=== PATIENT | female | born 1970 | race Hispanic/Latino ===

== ENCOUNTER → 2019-03-03 | Outpatient (CLI) | payer OTHER ==
[~2019-03-03] MED LIST: ACET-2743 PO; DIAZEPAM 2 MG TAB ONE; LORAZEPAM 1 MG TABLET ONE; TYL3 PO
== END | disposition home or self-care (01) ==
LOC: RAH 07:51
PROVIDERS: ATTEND Neurological Surgery
DX: M50.122 Cervical disc disorder at C5-C6 level with radiculopathy (principal); M48.02 Spinal stenosis, cervical region
CPT/HCPCS: 72141

== ENCOUNTER 2019-03-06 06:04 | Inpatient (IN) | payer OTHER | END 2019-03-07 09:30 | disposition home or self-care (01) | LOC: DAHIP 06:04 → 4BH 11:32 | PROC: 0RG1071 Fusion of Cervical Vertebral Joint with Autologous Tissue Substitute, Posterior Approach, Posterior Column, Open Approach (ICD-10-PCS; principal; 2019-03-06 07:30) | DX: M25.78 Osteophyte, vertebrae (principal); M54.10 Radiculopathy, site unspecified ==

== ENCOUNTER → 2019-03-28 | Outpatient (CLI) | payer OTHER ==
[~2019-03-28] MED LIST changes: -DIAZEPAM 2 MG TAB ONE; -LORAZEPAM 1 MG TABLET ONE
== END | disposition home or self-care (01) ==
LOC: RAH 11:17
PROVIDERS: ATTEND Neurological Surgery
DX: M43.22 Fusion of spine, cervical region (principal); M43.8X2 Other specified deforming dorsopathies, cervical region; Z98.890 Other specified postprocedural states
CPT/HCPCS: 72040

== ENCOUNTER 2022-07-14 11:54 | Emergency (ER) | payer OTHER ==
[~2022-07-14] VITALS: Ht 157.5 cm; Wt 63.5 kg
[2022-07-14] MEDS ORDERED: MORPHINE 4 MG SYG IVP ONE (13:30)
[2022-07-14] MEDS ORDERED: ONDANSETRON 4MG INJ IVP ONE (13:30)
[2022-07-14] MEDS ORDERED: 0.9%NACL 1000ML 1,000 ML IV ONE (13:30)
[2022-07-14 14:03] LABS: APPEARANCE,URINE CLEAR (CLEAR); BILIRUBIN,URINE NEGATIVE (NEGATIVE); COLOR,URINE LIGHT-YELLOW (YELLOW); GLUCOSE, URINE (UA) NEGATIVE (NEGATIVE); KETONES,URINE 20 mg/dL (NEGATIVE); LEUKOCYTE ESTERASE ,URINE 25 Leu/uL (NEGATIVE); NITRATE,URINE NEGATIVE (NEGATIVE); OCCULT BLOOD,URINE SMALL (NEGATIVE); PH,URINE 5.5 (5.0-8.0); PROTEIN,URINE 20 mg/dL (NEGATIVE); UROBILINOGEN,URINE 0.2 mg/dL (0.2-1.0)
[2022-07-14 14:09] LABS: BASOPHILS % (AUTO) 0.2 % (0.0-5.0); EOSINOPHILS % (AUTO) 0.6 % (0.0-8.0); LYMPHOCYTES % (AUTO) 14.1 % (21.0-51.0); MEAN CORPUSCULAR HEMOGLOBIN 28.6 pg (27.0-33.0); MEAN CORPUSCULAR HGB CONC 32.8 g/dL (32.0-36.0); MEAN CORPUSCULAR VOLUME 87.2 fL (79-99); MONOCYTES % (AUTO) 9.7 % (3.0-13.0); NEUTROPHILS % (AUTO) 74.8 % (40.0-77.0); PLATELET COUNT (AUTO) 391 K/uL (130-400); RED BLOOD CELL COUNT(AUTO) 4.47 MIL/uL (4.00-5.50); RED CELL DISTRIBUTION WIDTH 13.2 % (11.0-15.5); WHITE BLOOD COUNT (AUTO) 13.1 K/uL (4.8-10.8)
[2022-07-14 14:26] LABS: POTASSIUM 3.9 mmol/L (3.5-5.1)
[2022-07-14 14:30] LABS: ALBUMIN 3.3 g/dL (3.5-5.0); TOTAL PROTEIN, SERUM 8.9 g/dL (6.0-8.3)
[2022-07-14 14:46] LABS: SQUAMOUS EPITHELIAL CELL,UR RARE /HPF (0-2)
[2022-07-14] MEDS ORDERED: LACT10PA4 PO (15:03)
[2022-07-14] MEDS ORDERED: SULF1TAB42 PO (15:09)
[2022-07-14 15:35] VITALS: BP 124/78
== END 2022-07-14 15:47 | disposition home or self-care (01) ==
LOC: EDH 11:54
DX: K59.00 Constipation, unspecified (principal); N39.0 Urinary tract infection, site not specified; Z88.1 Allergy status to other antibiotic agents; Z88.0 Allergy status to penicillin; Z90.49 Acquired absence of other specified parts of digestive tract
CPT/HCPCS: 99285; 74176; 96361; 96374; 96375; 80053; 85025; 81001; 36415; J7030; J2405; J2270